=== PATIENT | female | born 1960 | race Caucasian/White ===

== ENCOUNTER → 2017-12-26 | Outpatient (CLI) | payer MEDICARE ==
[~2017-12-26] MED LIST: ASPI325T17 PO; ASPIRIN PO; ATOR20TA9 PO; BENA40TA2 PO; CHOL400C11 PO; FISH OIL PO; GLUC1TAB27 PO; LEVO25TA4 PO; LEVO50TA5 PO; MULT-658 PO; ONE A DAY VITAMIN PO; OXYC5CAP2 PO; RED600CA2 PO; [UNRECOGNIZED DRUG - OTHER] PO
[2017-12-26 10:46] LABS: BASOPHILS # (AUTO) 0.06 x10^3/uL (0-0.1); BASOPHILS % (AUTO) 1 % (0-1); EOSINOPHILS # (AUTO) 0.13 x10^3/uL (0-0.4); EOSINOPHILS % (AUTO) 2 % (1-7); LYMPHOCYTES # (AUTO) 1.86 x10^3/uL (1-3.4); LYMPHOCYTES % (AUTO) 22 % (22-44); MD NO; MEAN CORPUSCULAR HEMOGLOBIN 29.8 pg (27.0-34.8); MEAN CORPUSCULAR HGB CONC 33.2 g/dL (32.4-35.8); MEAN CORPUSCULAR VOLUME 89.9 fL (80-100); MEAN PLATELET VOLUME 6.2 fL (7.4-10.4); MONOCYTES # (AUTO) 0.66 x10^3/uL (0.2-0.8); MONOCYTES % (AUTO) 8 % (2-9); NEUTROPHILS # (AUTO) 5.93 x10^3/uL (1.8-6.8); NEUTROPHILS % (AUTO) 69 % (42-75); PLATELET COUNT 312 x10^3/uL (130-400); RED BLOOD COUNT 4.87 x10^6/uL (3.82-5.3)
[2017-12-26 10:51] LABS: MICROSCOPIC AUTO
[2017-12-26 10:52] LABS: CULTURE INDICATED? YES
[2017-12-26 11:00] LABS: ANION GAP 7 mmol/L (5-15); CALCIUM 8.4 mg/dL (8.5-10.1); CHLORIDE 106 mmol/L (98-107)
== END | disposition home or self-care (01) ==
LOC: STAR 09:39
PROVIDERS: ATTEND Orthopaedic Surgery
DX: Z01.818 Encounter for other preprocedural examination (principal); M17.12 Unilateral primary osteoarthritis, left knee; M19.90 Unspecified osteoarthritis, unspecified site; E03.9 Hypothyroidism, unspecified; E78.5 Hyperlipidemia, unspecified; I10 Essential (primary) hypertension
CPT/HCPCS: 36415; 80048; 81001; 85025; 87081; 87086; 93005